=== PATIENT | female | born 1980 | race Caucasian/White ===

== ENCOUNTER 2018-12-14 09:34 | Day surgery (SDC) | payer OTHER ==
[~2018-12-14 09:34] MED LIST: CEFAZOLIN 2 GM/50 ML (PMX) 50 ML IVPB; LIDOCAINE 2% (SDV) 5 ML INJ
[2018-12-14] MEDS: ACETAMINOPHEN 500 MG TAB PO (10:44)
[2018-12-14] MEDS ORDERED: LIDOCAINE 2% (MDV) 20 ML INJ (10:56)
[2018-12-14] MEDS ORDERED: BUPIVACAINE 0.5% (SDV) 30 ML INJ ×2 (10:56→12:24)
[2018-12-14] MEDS ORDERED: POLYMYXIN/BACITRACIN 1L IRRIG (10:56)
[2018-12-14] MEDS ORDERED: FENTAnyl 50 MCG/ML VIAL (11:18)
[2018-12-14] MEDS ORDERED: CEFAZOLIN 1 GM INJ (11:18)
[2018-12-14] MEDS ORDERED: MIDAZOLAM 1 MG/ML 2 ML INJ (11:18)
[2018-12-14] MEDS ORDERED: PROPOFOL 40 ML (11:18)
[2018-12-14] MEDS ORDERED: DIPHENHYDRAMINE 50 MG INJ IV (11:30)
[2018-12-14] MEDS ORDERED: OXYCODONE/ACETAMINOPHEN (5/325) TAB PO ×2 (11:30)
[2018-12-14] MEDS ORDERED: LABETALOL HCL 20MG INJ IV (11:30)
[2018-12-14] MEDS ORDERED: FENTAnyl 50 MCG/ML VIAL IV (11:30)
[2018-12-14] MEDS ORDERED: ALBUTEROL 0.083% (NEB) 2.5 MG/3 ML AMP HHN (11:30)
[2018-12-14] MEDS ORDERED: MEPERIDINE 25 MG INJ IV (11:30)
[2018-12-14] MEDS ORDERED: HYDROmorphONE 1 MG/5 ML IV SYRINGE IV ×2 (11:30)
[2018-12-14] MEDS ORDERED: morphine (1 MG/ML) 10ML SYRINGE IV ×2 (11:30)
[2018-12-14] MEDS: BUPIVACAINE 0.5% 30 ML VIAL INJ (11:35)
[2018-12-14] MEDS: LIDOCAINE 2% (MDV) 20 ML INJ INJ (11:35)
[2018-12-14] MEDS: POLYMYXIN/BACITRACIN 1L IRRIG IRR (11:35)
[2018-12-14] MEDS ORDERED: PHENYLephrine (100 MCG/ML) 5ML SYG (11:51)
[2018-12-14] MEDS ORDERED: PROPOFOL 20 ML (12:33)
[2018-12-14] MEDS: FENTAnyl 50 MCG/ML VIAL IV (13:44)
[2018-12-14] MEDS: ONDANSETRON 4 MG INJ IV (13:44)
== END 2018-12-14 14:40 | disposition home or self-care (01) ==
LOC: SDS 09:34
DX: M21.612 Bunion of left foot (principal)
CPT/HCPCS: 28296; 73630-LT; 88304; 88311